=== PATIENT | female | born 1955 | race Caucasian/White ===

== ENCOUNTER 2016-05-30 11:59 | Emergency (ER) | payer BC, OTHER ==
[2016-05-30] MEDS ORDERED: ACETAMINOPHEN TAB 500 MG TAB PO STA (12:44)
--- NOTE | 2016-05-30 12:48 | ED ---
General Adult HPI - General Chief complaint: Weakness Stated complaint: FACIAL NUMBNESS, DIZZINESS Time Seen by Provider: 05/30/16 12:05 Source: patient, RN notes reviewed Mode of arrival: wheelchair Limitations: no limitations - History of Present Illness Initial comments: This is a 60-year-old female who presents to the emergency department complaining of not feeling right over the last 2 days. Patient states she's a little bit lightheaded but not dizzy. Patient states she's feeling hot sometimes but not sweating. Patient states she also feels a little bit jittery. Patient states she went and saw her primary medical care doctor and they told her that she was anxious and gave her some medication for anxiety. Patient denies any congestion patient denies any sore throat patient denies any difficulty breathing or shortness of breath. Patient denies any chest pain or palpitations. Patient denies abdominal pain patient denies nausea vomiting or diarrhea. Patient denies any rashes or lesions. Patient denies any dysuria hematuria urinary frequency. - Related Data Home Medications Medication Instructions Recorded Confirmed Citalopram Hydrobromide [CeleXA] 10 mg PO DAILY@1700 05/30/16 05/30/16 Insulin Glargine,Hum.rec.anlog 33 units SQ DAILY@1700 05/30/16 05/30/16 [Avinash Bourgeois] Lisinopril [Zestril] 20 mg PO QAM 05/30/16 05/30/16 Omeprazole 40 mg PO QAM 05/30/16 05/30/16 amLODIPine [Norvasc] 10 mg PO QAM 05/30/16 05/30/16 Previous Rx's Medication Instructions Recorded Ciprofloxacin HCl [Cipro] 500 mg PO Q12HR #14 tablet 05/30/16 Allergies Allergy/AdvReac Type Severity Reaction Status Date / Time No Known Allergies Allergy Verified 05/30/16 12:33 Review of Systems ROS Statement: Those systems with pertinent positive or pertinent negative responses have been documented in the HPI. ROS Other: All systems not noted in ROS Statement are negative. Past Medical History Past Medical History: Diabetes Mellitus, GERD/Reflux, Hypertension History of Any Multi-Drug Resistant Organisms: None Reported Past Surgical History: Hysterectomy Past Psychological History: No Psychological Hx Reported Smoking Status: Never smoker Past Alcohol Use History: None Reported Past Drug Use History: None Reported General Exam - General Exam Comments Initial Comments: GENERAL: Patient is well-developed and well-nourished. Patient is nontoxic and well- hydrated and is in mild distress. ENT: Neck is soft and supple. No significant lymphadenopathy is noted. Oropharynx is clear. Moist mucous membranes. Neck has full range of motion without eliciting any pain. EYES: The sclera were anicteric and conjunctiva were pink and moist. Extraocular movements were intact and pupils were equal round and reactive to light. Eyelids were unremarkable. PULMONARY: Unlabored respirations. Good breath sounds bilaterally. No audible rales rhonchi or wheezing was noted. CARDIOVASCULAR: There is a regular rate and rhythm without any murmurs gallops or rubs. ABDOMEN: Soft and nontender with normal bowel sounds. No palpable organomegaly was noted. There is no palpable pulsatile mass. SKIN: Skin is clear with no lesions or rashes and otherwise unremarkable. NEUROLOGIC: Patient is alert and oriented x3. Cranial nerves II through XII are grossly intact. Motor and sensory are also intact. Normal speech, volume and content. Symmetrical smile. MUSCULOSKELETAL: Normal extremities with adequate strength and full range of motion. LYMPHATICS: No significant lymphadenopathy is noted PSYCHIATRIC: Normal psychiatric evaluation. Limitations: no limitations Course Vital Signs 05/30/16 05/30/16 05/30/16 12:01 12:42 13:43 Temperature 97.2 F L 99.7 F H 98.1 F Pulse Rate 85 70 Respiratory 16 18 Rate Blood Pressure 142/67 129/75 O2 Sat by Pulse 98 98 Oximetry Medical Decision Making - Medical Decision Making EKG shows normal sinus rhythm at 81 bpm NH interval is 164 QRS is 80 QT interval 42 QTC is 466 per patient's EKG shows no ST segment elevation or depression or T wave abnormalities are noted. Patient appeared to have a urinary tract infections I gave the patient antibiotics and sent the patient home on antibiotics. - Lab Data Result diagrams: 05/30/16 12:28 05/30/16 12:28 Lab Results 05/30/16 05/30/16 05/30/16 Range/Units 12:28 12:28 12:28 WBC 9.2 (3.8-10.6) k/uL RBC 4.82 (3.80-5.40) m/uL Hgb 14.6 (11.4-16.0) gm/dL Hct 42.6 (34.0-46.0) % MCV 88.5 (80.0-100.0) fL MCH 30.3 (25.0-35.0) pg MCHC 34.3 (31.0-37.0) g/dL RDW 12.7 (11.5-15.5) % Plt Count 293 (150-450) k/uL Neutrophils % 76 % Lymphocytes % 19 % Monocytes % 4 % Eosinophils % 0 % Basophils % 0 % Neutrophils # 7.0 (1.3-7.7) k/uL Lymphocytes # 1.7 (1.0-4.8) k/uL Monocytes # 0.4 (0-1.0) k/uL Eosinophils # 0.0 (0-0.7) k/uL Basophils # 0.0 (0-0.2) k/uL Sodium 141 (137-145) mmol/L Potassium 4.3 (3.5-5.1) mmol/L Chloride 106 (98-107) mmol/L Carbon Dioxide 22 (22-30) mmol/L Anion Gap 13 mmol/L BUN 18 H (7-17) mg/dL Creatinine 0.85 (0.52-1.04) mg/dL Est GFR (MDRD) Af Amer >60 (>60 ml/min/1.73 sqM) Est GFR (MDRD) Non-Af >60 (>60 ml/min/1.73 sqM) Glucose 159 H (74-99) mg/dL Calcium 9.9 (8.4-10.2) mg/dL Total Bilirubin 0.7 (0.2-1.3) mg/dL AST 24 (14-36) U/L ALT 31 (9-52) U/L Alkaline Phosphatase 77 (38-126) U/L Total Protein 7.9 (6.3-8.2) g/dL Albumin 4.2 (3.5-5.0) g/dL TSH 0.837 (0.465-4.680) mIU/L Free T4 1.30 (0.78-2.19) ng/dL Urine Color Urine Appearance (Clear) Urine pH (5.0-8.0) Ur Specific [place] (1.001-1.035) Urine Protein (Negative) Urine Glucose (UA) (Negative) Urine Ketones (Negative) Urine Blood (Negative) Urine Nitrate (Negative) Urine Bilirubin (Negative) Urine Urobilinogen (<2.0) mg/dL Ur Leukocyte Esterase (Negative) Urine RBC (0-5) /hpf Urine WBC (0-5) /hpf Ur Squamous Epith Cells (0-4) /hpf Urine Bacteria (None) /hpf Hyaline Casts (0-2) /lpf Urine Mucus (None) /hpf 05/30/16 Range/Units 13:14 WBC (3.8-10.6) k/uL RBC (3.80-5.40) m/uL Hgb (11.4-16.0) gm/dL Hct (34.0-46.0) % MCV (80.0-100.0) fL MCH (25.0-35.0) pg MCHC (31.0-37.0) g/dL RDW (11.5-15.5) % Plt Count (150-450) k/uL Neutrophils % % Lymphocytes % % Monocytes % % Eosinophils % % Basophils % % Neutrophils # (1.3-7.7) k/uL Lymphocytes # (1.0-4.8) k/uL Monocytes # (0-1.0) k/uL Eosinophils # (0-0.7) k/uL Basophils # (0-0.2) k/uL Sodium (137-145) mmol/L Potassium (3.5-5.1) mmol/L Chloride (98-107) mmol/L Carbon Dioxide (22-30) mmol/L Anion Gap mmol/L BUN (7-17) mg/dL Creatinine (0.52-1.04) mg/dL Est GFR (MDRD) Af Amer (>60 ml/min/1.73 sqM) Est GFR (MDRD) Non-Af (>60 ml/min/1.73 sqM) Glucose (74-99) mg/dL Calcium (8.4-10.2) mg/dL Total Bilirubin (0.2-1.3) mg/dL AST (14-36) U/L ALT (9-52) U/L Alkaline Phosphatase (38-126) U/L Total Protein (6.3-8.2) g/dL Albumin (3.5-5.0) g/dL TSH (0.465-4.680) mIU/L Free T4 (0.78-2.19) ng/dL Urine Color Yellow Urine Appearance Clear (Clear) Urine pH 5.5 (5.0-8.0) Ur Specific [place] 1.017 (1.001-1.035) Urine Protein Negative (Negative) Urine Glucose (UA) Negative (Negative) Urine Ketones 1+ H (Negative) Urine Blood Negative (Negative) Urine Nitrate Negative (Negative) Urine Bilirubin Negative (Negative) Urine Urobilinogen <2.0 (<2.0) mg/dL Ur Leukocyte Esterase Small H (Negative) Urine RBC 2 (0-5) /hpf Urine WBC 26 H (0-5) /hpf Ur Squamous Epith Cells 1 (0-4) /hpf Urine Bacteria Many H (None) /hpf Hyaline Casts 2 (0-2) /lpf Urine Mucus Rare H (None) /hpf Disposition Clinical Impression: Urinary tract infection Disposition: HOME SELF-CARE Condition: Good Instructions: Urinary Tract Infection in Women (ED) Prescriptions: Ciprofloxacin HCl [Cipro] 500 mg PO Q12HR #14 tablet Referrals: Russ Hancock MD [Primary Care Provider] - 1-2 days Time of Disposition: 14:57
[2016-05-30 12:59] LABS: Basophils % (A) 0 %; CH 31.7; Eosinophils % (A) 0 %; HCT 42.6 % (34.0-46.0); HDW 2.73; HGB 14.6 gm/dL (11.4-16.0); Luc # (Auto) 0.06; Luc % (Auto) 1; Lymphocytes # (A) 1.7 k/uL (1.0-4.8); Lymphocytes % (A) 19 %; MCH 30.3 pg (25.0-35.0); MCHC 34.3 g/dL (31.0-37.0); MCV 88.5 fL (80.0-100.0); Mean Platelet Volume 7.6; Monocytes # (A) 0.4 k/uL (0-1.0); Monocytes % (A) 4 %; Neutrophils % (A) 76 %; RBC 4.82 m/uL (3.80-5.40); RDW 12.7 % (11.5-15.5); WBC 9.2 k/uL (3.8-10.6); WBC (Perox) 9.26
[2016-05-30 13:10] LABS: ALT 31 U/L (9-52); AST 24 U/L (14-36); Alkaline Phosphatase 77 U/L (38-126); Anion Gap 13 mmol/L; Blood Urea Nitrogen 18 mg/dL (7-17); Calcium 9.9 mg/dL (8.4-10.2); Carbon Dioxide 22 mmol/L (22-30); Chloride 106 mmol/L (98-107); Glucose 159 mg/dL (74-99); Non-African American GFR(MDRD) >60 (>60 ml/min/1.73 sqM); Potassium 4.3 mmol/L (3.5-5.1); Sodium 141 mmol/L (137-145); Total Bilirubin 0.7 mg/dL (0.2-1.3); Total Protein 7.9 g/dL (6.3-8.2)
--- NOTE | 2016-05-30 13:13 | XR ---
EXAMINATION TYPE: XR chest 2V DATE OF EXAM: 05/30/2016 1:08 PM HISTORY: Shortness of breath. COMPARISON: None. TECHNIQUE: Single view of the chest is submitted. FINDINGS: Demonstrated are scattered senescent parenchymal change. There is no evidence for focal infiltrate. The heart is stable. Hilar and mediastinal structures are within normal limits. Degenerative changes are seen of the dorsal spine. IMPRESSION: 1. Chronic changes without evidence for acute pulmonary disease.
[2016-05-30 13:27] LABS: Appearance,Urine Clear (Clear); Bacteria,Urine Many /hpf; Bilirubin,Urine Negative (Negative); Glucose,Urine (UA) Negative (Negative); Ketones,Urine 1+ (Negative); Leukocyte Esterase,Urine Small (Negative); Mucus,Urine Rare /hpf; Nitrite,Urine Negative (Negative); PH, Urine 5.5 (5.0-8.0); Particle Count 3081; Protein,Urine Negative (Negative); RBC,Urine 2 /hpf (0-5); Specific Gravity,Urine 1.017 (1.001-1.035); Squamous Epithelial Cell,Urine 1 /hpf (0-4); UA Billing (MACRO vs. MICRO) MICRO; Urobilinogen,Urine <2.0 mg/dL (<2.0); WBC,Urine 26 /hpf (0-5)
[2016-05-30 13:53] VITALS: RESP 18
[2016-05-30 15:10] VITALS: BP 112/64; PULSE 63; TEMP 98
== END 2016-05-30 15:09 | disposition home or self-care (01) ==
LOC: EC 11:59
DX: N39.0 Urinary tract infection, site not specified (principal); I10 Essential (primary) hypertension; E11.9 Type 2 diabetes mellitus without complications; K21.9 Gastro-esophageal reflux disease without esophagitis; F41.9 Anxiety disorder, unspecified; Z79.4 Long term (current) use of insulin; Z79.899 Other long term (current) drug therapy
CPT/HCPCS: 36415; 93005; 84439; 80053; 84443; 85025; 81001; 71020; 99285; 96365; J0696

== ENCOUNTER → 2016-06-11 | Outpatient (CLI) | payer OTHER ==
[2016-06-11 09:38] LABS: Cholesterol 198 mg/dL (<200); HDL Cholesterol 41 mg/dL (40-60); Triglycerides 204 mg/dL (<150)
== END | disposition home or self-care (01) ==
LOC: LABWHC1 08:36
PROVIDERS: ATTEND Internal Medicine Interventional Cardiology
DX: E78.2 Mixed hyperlipidemia (principal)
CPT/HCPCS: 36415; 80061

== ENCOUNTER → 2016-10-01 | Outpatient (CLI) | payer OTHER ==
[2016-10-01 09:22] LABS: ALT 39 U/L (9-52); AST 30 U/L (14-36); Cholesterol 139 mg/dL (<200); HDL Cholesterol 39 mg/dL (40-60); Triglycerides 139 mg/dL (<150)
== END | disposition home or self-care (01) ==
LOC: LABWHC1 08:42
PROVIDERS: ATTEND Internal Medicine Interventional Cardiology
DX: E78.2 Mixed hyperlipidemia (principal)
CPT/HCPCS: 36415; 80061; 84450; 84460

== ENCOUNTER 2017-02-04 11:09 | Inpatient (IN) | payer OTHER ==
[2017-02-04] MEDS ORDERED: MECLIZINE 25 MG TAB PO STA (11:36)
[2017-02-04] MEDS ORDERED: ASPIRIN 81 MG PO STA (11:36)
[2017-02-04] MEDS ORDERED: NITROGLYCERIN OINT 1 INCH/GM PACKET TOPICAL STA (11:36)
[2017-02-04] MEDS ORDERED: DIAZEPAM 5 MG/ML 2 ML SYRINGE IVP STA (11:36)
[2017-02-04] MEDS ORDERED: SODIUM CHLORIDE 0.9% 500 ML IV STA (11:36)
--- NOTE | 2017-02-04 11:42 | ED ---
General Adult HPI - General Chief complaint: Dizziness Stated complaint: heart palps Time Seen by Provider: 02/04/17 11:20 Source: patient, RN notes reviewed Mode of arrival: wheelchair Limitations: no limitations - History of Present Illness Initial comments: This is a 61-year-old female with past medical history significant for diabetes hypertension high cholesterol. Patient states she was getting her hair colored today when all of a sudden she became very sweaty and then became lightheaded but did not feel as though she was going to pass out. Patient stated she then started having some minimal chest heaviness. Patient states there was no radiation of the pain. Patient denies any nausea. Patient states she still feels dizzy especially when she moves her head. Patient states the discomfort remains in her chest but is very minimal. Patient denies any abdominal pain. Patient denies any nausea vomiting diarrhea. Patient denies any recent fever chills or cough. Patient denies any recent trauma. Patient states she is a very mild headache there is no numbness or weakness. - Related Data Home Medications Medication Instructions Recorded Confirmed Insulin Glargine,Hum.rec.anlog 17 units SQ DAILY@1700 05/30/16 02/04/17 [Toujeo Solostar] Lisinopril [Zestril] 20 mg PO QAM 05/30/16 02/04/17 amLODIPine [Norvasc] 10 mg PO QAM 05/30/16 02/04/17 Omeprazole 20 mg PO DAILY 02/04/17 02/04/17 metFORMIN HCL [Glucophage] 850 mg PO BID@0800,1600 02/04/17 02/04/17 Allergies Allergy/AdvReac Type Severity Reaction Status Date / Time No Known Allergies Allergy Verified 02/04/17 11:46 Review of Systems ROS Statement: Those systems with pertinent positive or pertinent negative responses have been documented in the HPI. ROS Other: All systems not noted in ROS Statement are negative. Past Medical History Past Medical History: Diabetes Mellitus, GERD/Reflux, Hypertension History of Any Multi-Drug Resistant Organisms: None Reported Past Surgical History: Hysterectomy Additional Past Surgical History / Comment(s): bunionectomy Past Psychological History: No Psychological Hx Reported Smoking Status: Never smoker Past Alcohol Use History: None Reported Past Drug Use History: None Reported General Exam - General Exam Comments Initial Comments: GENERAL: Patient is well-developed and well-nourished. Patient is nontoxic and well- hydrated and is in mild distress. ENT: Neck is soft and supple. No significant lymphadenopathy is noted. Oropharynx is clear. Moist mucous membranes. Neck has full range of motion without eliciting any pain. EYES: The sclera were anicteric and conjunctiva were pink and moist. Extraocular movements were intact and pupils were equal round and reactive to light. Eyelids were unremarkable. PULMONARY: Unlabored respirations. Good breath sounds bilaterally. No audible rales rhonchi or wheezing was noted. CARDIOVASCULAR: There is a regular rate and rhythm without any murmurs gallops or rubs. ABDOMEN: Soft and nontender with normal bowel sounds. No palpable organomegaly was noted. There is no palpable pulsatile mass. SKIN: Skin is clear with no lesions or rashes and otherwise unremarkable. NEUROLOGIC: Patient is alert and oriented x3. Cranial nerves II through XII are grossly intact. Motor and sensory are also intact. Normal speech, volume and content. Symmetrical smile. Cerebellar testing. Nose was normal bilaterally MUSCULOSKELETAL: Normal extremities with adequate strength and full range of motion. No lower extremity swelling or edema. No calf tenderness. LYMPHATICS: No significant lymphadenopathy is noted PSYCHIATRIC: Normal psychiatric evaluation. Normal interpersonal interactions appears functionally intact in deals appropriately with others. No signs of depression. No signs of anxiety. Limitations: no limitations Course Vital Signs 02/04/17 02/04/17 02/04/17 11:19 12:03 13:39 Pulse Rate 108 H 99 65 Respiratory 20 19 18 Rate Blood Pressure 159/77 130/64 128/64 O2 Sat by Pulse 98 96 98 Oximetry Medical Decision Making - Medical Decision Making EKG shows normal sinus rhythm at 96 bpm WV interval 152 QRS is 70 QT interval 356 QTC is 449. Patient's EKG is compared to an old EKG there are no acute changes noted however leads V2 and V3 may be switched. CT of the brain shows no acute abnormality. Patient's chest x-ray shows no acute abnormality. Patient received Antivert while in the hospital but she remains somewhat dizzy. Patient states she still has some slight discomfort in the chest. Patient is hypomagnesemic so I will be giving her some magnesium. I spoke with Dr. Hancock I admitted the patient to Dr. Hancock I consult to cardiology. - Lab Data Result diagrams: 02/04/17 11:57 02/04/17 11:57 Lab Results 02/04/17 02/04/17 02/04/17 Range/Units 11:57 11:57 11:57 WBC 9.1 (3.8-10.6) k/uL RBC 4.29 (3.80-5.40) m/uL Hgb 13.8 (11.4-16.0) gm/dL Hct 40.4 (34.0-46.0) % MCV 94.3 (80.0-100.0) fL MCH 32.1 (25.0-35.0) pg MCHC 34.0 (31.0-37.0) g/dL RDW 13.4 (11.5-15.5) % Plt Count 322 (150-450) k/uL Neutrophils % 71 % Lymphocytes % 22 % Monocytes % 5 % Eosinophils % 2 % Basophils % 0 % Neutrophils # 6.4 (1.3-7.7) k/uL Lymphocytes # 2.0 (1.0-4.8) k/uL Monocytes # 0.4 (0-1.0) k/uL Eosinophils # 0.1 (0-0.7) k/uL Basophils # 0.0 (0-0.2) k/uL PT (9.0-12.0) sec INR (<1.2) APTT (22.0-30.0) sec Sodium 139 (137-145) mmol/L Potassium 4.7 (3.5-5.1) mmol/L Chloride 106 (98-107) mmol/L Carbon Dioxide 20 L (22-30) mmol/L Anion Gap 13 mmol/L BUN 16 (7-17) mg/dL Creatinine 0.89 (0.52-1.04) mg/dL Est GFR (MDRD) Af Amer >60 (>60 ml/min/1.73 sqM) Est GFR (MDRD) Non-Af >60 (>60 ml/min/1.73 sqM) Glucose 147 H (74-99) mg/dL Calcium 9.7 (8.4-10.2) mg/dL Magnesium 1.2 L (1.6-2.3) mg/dL Total Bilirubin 0.5 (0.2-1.3) mg/dL AST 23 (14-36) U/L ALT 28 (9-52) U/L Alkaline Phosphatase 65 (38-126) U/L Total Creatine Kinase 150 H (30-135) U/L CK-MB (CK-2) 0.9 (0.0-2.4) ng/mL CK-MB (CK-2) Rel Index 0.6 Troponin I <0.012 (0.000-0.034) ng/mL Total Protein 7.2 (6.3-8.2) g/dL Albumin 4.0 (3.5-5.0) g/dL 02/04/17 Range/Units 11:57 WBC (3.8-10.6) k/uL RBC (3.80-5.40) m/uL Hgb (11.4-16.0) gm/dL Hct (34.0-46.0) % MCV (80.0-100.0) fL MCH (25.0-35.0) pg MCHC (31.0-37.0) g/dL RDW (11.5-15.5) % Plt Count (150-450) k/uL Neutrophils % % Lymphocytes % % Monocytes % % Eosinophils % % Basophils % % Neutrophils # (1.3-7.7) k/uL Lymphocytes # (1.0-4.8) k/uL Monocytes # (0-1.0) k/uL Eosinophils # (0-0.7) k/uL Basophils # (0-0.2) k/uL PT 10.7 (9.0-12.0) sec INR 1.1 (<1.2) APTT 21.9 L (22.0-30.0) sec Sodium (137-145) mmol/L Potassium (3.5-5.1) mmol/L Chloride (98-107) mmol/L Carbon Dioxide (22-30) mmol/L Anion Gap mmol/L BUN (7-17) mg/dL Creatinine (0.52-1.04) mg/dL Est GFR (MDRD) Af Amer (>60 ml/min/1.73 sqM) Est GFR (MDRD) Non-Af (>60 ml/min/1.73 sqM) Glucose (74-99) mg/dL Calcium (8.4-10.2) mg/dL Magnesium (1.6-2.3) mg/dL Total Bilirubin (0.2-1.3) mg/dL AST (14-36) U/L ALT (9-52) U/L Alkaline Phosphatase (38-126) U/L Total Creatine Kinase (30-135) U/L CK-MB (CK-2) (0.0-2.4) ng/mL CK-MB (CK-2) Rel Index Troponin I (0.000-0.034) ng/mL Total Protein (6.3-8.2) g/dL Albumin (3.5-5.0) g/dL Critical Care Time Critical Care Time: Yes Total Critical Care Time: 35 Disposition Clinical Impression: Unstable angina, Hypomagnesemia, Vertigo Disposition: ADMITTED IP TO THIS HOSP Referrals: Russ Hancock MD [Primary Care Provider] - 1-2 days Time of Disposition: 13:51
[2017-02-04 12:12] LABS: Basophils % (A) 0 %; CHCM 35.2; Eosinophils # (A) 0.1 k/uL (0-0.7); Eosinophils % (A) 2 %; HCT 40.4 % (34.0-46.0); HDW 2.79; HGB 13.8 gm/dL (11.4-16.0); Luc # (Auto) 0.07; Luc % (Auto) 1; Lymphocytes % (A) 22 %; MCH 32.1 pg (25.0-35.0); MCV 94.3 fL (80.0-100.0); Mean Platelet Volume 7.6; Monocytes # (A) 0.4 k/uL (0-1.0); Monocytes % (A) 5 %; Neutrophils # (A) 6.4 k/uL (1.3-7.7); Neutrophils % (A) 71 %; RBC 4.29 m/uL (3.80-5.40); RDW 13.4 % (11.5-15.5); WBC 9.1 k/uL (3.8-10.6); WBC (Perox) 8.58
[2017-02-04 12:19] LABS: ALT 28 U/L (9-52); AST 23 U/L (14-36); Alkaline Phosphatase 65 U/L (38-126); Anion Gap 13 mmol/L; Blood Urea Nitrogen 16 mg/dL (7-17); Calcium 9.7 mg/dL (8.4-10.2); Carbon Dioxide 20 mmol/L (22-30); Chloride 106 mmol/L (98-107); Glucose 147 mg/dL (74-99); Magnesium 1.2 mg/dL (1.6-2.3); Non-African American GFR(MDRD) >60 (>60 ml/min/1.73 sqM); Potassium 4.7 mmol/L (3.5-5.1); Sodium 139 mmol/L (137-145); Total Bilirubin 0.5 mg/dL (0.2-1.3); Total Protein 7.2 g/dL (6.3-8.2)
[2017-02-04 12:31] LABS: INR 1.1 (<1.2); Prothrombin Time 10.7 sec (9.0-12.0)
[2017-02-04 12:32] LABS: Partial Thromboplastin Time 21.9 sec (22.0-30.0)
[2017-02-04 12:45] LABS: Creatine Kinase 150 U/L (30-135)
[2017-02-04 12:57] LABS: Creatine Kinase MB 0.9 ng/mL (0.0-2.4); Troponin I <0.012 ng/mL (0.000-0.034)
--- NOTE | 2017-02-04 13:13 | CT ---
EXAMINATION TYPE: CT brain wo con DATE OF EXAM: 02/04/2017 COMPARISON: NONE HISTORY: dizziness CT DLP: 1227 mGycm. Automated Exposure Control for Dose Reduction was Utilized. TECHNIQUE: CT scan of the head is performed without contrast. FINDINGS: There is no acute intracranial hemorrhage, mass effect, or midline shift identified. The ventricles and sulci are within normal limits in size for the patient's age. No suspicious extra-ax ial fluid collection is seen. The globes are intact and the visualized sinuses are clear. IMPRESSION: No acute intracranial hemorrhage, mass effect, or midline shift is seen. No acute intrac ranial process.
--- NOTE | 2017-02-04 13:15 | XR ---
EXAMINATION TYPE: XR chest 2V DATE OF EXAM: 02/04/2017 COMPARISON: 05/30/16 HISTORY: Shortness of breath TECHNIQUE: Frontal and lateral views of the chest are obtained. FINDINGS: Scattered senescent parenchymal changes noted. Hyperinflation compatible with COPD. No evidence for infiltrate. No evidence for atelectasis. Heart size is stable. Mediastinal structures are stable and grossly unremarkable. No evidence for hilar prominence. Degenerative changes dorsal spine. IMPRESSION: 1. No evidence for acute pulmonary disease.
[2017-02-04] MEDS ORDERED: NITROGLYCERIN SL TABS 0.4 MG TAB SUBLINGUAL PRN (13:51)
[2017-02-04] MEDS ORDERED: HEPARIN SODIUM,PORCINE 5,000 UNIT/ML 1 ML VIAL IV ONE (13:55)
[2017-02-04] MEDS ORDERED: HEPARIN SODIUM,PORCINE/D5W PMX 25,000 UNIT in DEXTROSE/WATER 1 500ML.BAG IV SCH (14:00)
[2017-02-04 15:38] LABS: Glucose,Whole Blood 112 mg/dL (75-99)
[2017-02-04] MEDS: NITROGLYCERIN OINT 1 INCH/GM PACKET TOPICAL SCH (16:20)
[2017-02-04] MEDS: MAGNESIUM SULFATE-D5W PMX 1 GM in DEXTROSE/WATER 1 100ML.BAG IVPB SCH ×2 (16:39→17:06)
[2017-02-04 16:55] LABS: Glucose,Whole Blood 128 mg/dL (75-99)
[2017-02-04 18:38] LABS: Creatine Kinase 113 U/L (30-135)
[2017-02-04 18:53] LABS: Creatine Kinase MB 0.8 ng/mL (0.0-2.4); Troponin I <0.012 ng/mL (0.000-0.034)
[2017-02-04 20:18] LABS: Glucose,Whole Blood 209 mg/dL (75-99)
[2017-02-04] MEDS ORDERED: ACETAMINOPHEN TAB 325 MG TAB PO PRN (21:15)
[2017-02-04] MEDS ORDERED: INSULIN GLARGINE 100 UNIT/ML 10 ML VIAL SQ SCH (21:45)
[2017-02-04] MEDS: amLODIPine 10 MG TAB PO SCH (22:02)
[2017-02-04 22:59] LABS: Hemoglobin A1C 6.4 % (4.2-6.1)
[2017-02-05 00:48] LABS: Creatine Kinase 99 U/L (30-135)
[2017-02-05 01:01] LABS: Creatine Kinase MB 0.8 ng/mL (0.0-2.4); Troponin I <0.012 ng/mL (0.000-0.034)
[2017-02-05 04:56] LABS: Magnesium 1.7 mg/dL (1.6-2.3)
[2017-02-05 05:26] LABS: Glucose,Whole Blood 89 mg/dL (75-99)
[2017-02-05] MEDS: NITROGLYCERIN OINT 1 INCH/GM PACKET TOPICAL SCH ×3 (05:56→11:26)
[2017-02-05] MEDS ORDERED: PANTOPRAZOLE 40 MG TABLET PO SCH (07:30)
--- NOTE | 2017-02-05 08:47 | P.HPIM ---
History of Present Illness H&P Date: 02/05/17 Chief Complaint: Chest heaviness This is a 61-year-old white female with known history of diabetes, which is been fairly well controlled and history of reflux esophagitis he states significant chest heaviness when she was getting her hair styled yesterday. This is unusual for her to feel any of this type of discomfort. There is questionable mild nausea but no diaphoresis stated. Given her age and her overall comorbidities, she is essentially admitted for rule out myocardial infarction. She is a nonsmoker. She states significant stress because of her parents, being elderly, are somewhat debilitated. No previous anginal symptoms. He states previous stress testing recently within the last year or 2 which was normal. Review of Systems Constitutional: Denies chills, Denies fever Eyes: denies blurred vision, denies pain Cardiovascular: Reports chest pain, Reports dyspnea on exertion Respiratory: Denies cough Genitourinary: Denies dysuria, Denies hematuria Past Medical History Past Medical History: Diabetes Mellitus, GERD/Reflux, Hyperlipidemia, Hypertension History of Any Multi-Drug Resistant Organisms: None Reported Past Surgical History: Hysterectomy Additional Past Surgical History / Comment(s): bunionectomy, lower dental implants Past Anesthesia/Blood Transfusion Reactions: No Reported Reaction Additional Past Anesthesia/Blood Transfusion Reaction / Comment(s): clausterphobia Smoking Status: Never smoker - Past Family History Mother Family Medical History: Diabetes Mellitus Father Additional Family Medical History / Comment(s): pacemaker, heart valve replacement Medications and Allergies Home Medications Medication Instructions Recorded Confirmed Type Insulin Glargine,Hum.rec.anlog 17 units SQ DAILY@1700 05/30/16 02/04/17 History [Avinash Bourgeois] Lisinopril [Zestril] 20 mg PO QAM 05/30/16 02/04/17 History amLODIPine [Norvasc] 10 mg PO QAM 05/30/16 02/04/17 History Omeprazole 20 mg PO DAILY 02/04/17 02/04/17 History metFORMIN HCL [Glucophage] 850 mg PO BID@0800,1600 02/04/17 02/04/17 History Allergies Allergy/AdvReac Type Severity Reaction Status Date / Time No Known Allergies Allergy Verified 02/04/17 11:46 Physical Exam Vitals: Vital Signs Temp Pulse Pulse Resp BP BP BP 02/05/17 04:00 96.9 F L 67 16 02/05/17 00:00 97.3 F L 88 16 02/04/17 20:00 97.5 F L 105 H 15 125/68 123/73 02/04/17 16:00 97.5 F L 87 16 02/04/17 14:21 98.2 F 75 18 126/74 02/04/17 13:39 65 18 128/64 02/04/17 12:03 99 19 130/64 02/04/17 11:19 108 H 20 159/77 BP BP Pulse Ox 02/05/17 04:00 109/56 95 02/05/17 00:00 131/63 96 02/04/17 20:00 115/56 115/56 93 L 02/04/17 16:00 128/76 95 02/04/17 14:21 97 02/04/17 13:39 98 02/04/17 12:03 96 02/04/17 11:19 98 Intake and Output 02/04/17 02/05/17 02/05/17 22:59 06:59 14:59 Intake Total 123.728 Output Total 225 Balance 123.728 -225 Intake: Intake, IV Titration 123.728 Amount Heparin Sodium,Porcine/ 123.728 D5w Pmx 25,000 unit In Dextrose/Water 1 500ml. bag @ 9.76 UNITS/KG/HR 20 .01 mls/hr IV .Q24H ARABELLA Rx#:[id number] Output: Urine 225 Other: # Voids 1 1 Weight 104.5 kg - Constitutional General appearance: obese - EENT Eyes: EOMI - Neck Neck: no lymphadenopathy - Respiratory Respiratory: bilateral: CTA - Cardiovascular Rhythm: regular Heart sounds: normal: S1, S2 - Gastrointestinal General gastrointestinal: soft, no tenderness - Integumentary Integumentary: no cellulitis - Neurologic Neurologic: CNII-XII intact, focal deficits Results CBC & Chem 7: 02/04/17 11:57 02/04/17 11:57 Labs: Abnormal Lab Results - Last 24 Hours (Table) 02/04/17 02/04/17 02/04/17 Range/Units 11:57 11:57 11:57 APTT 21.9 L (22.0-30.0) sec Carbon Dioxide 20 L (22-30) mmol/L Glucose 147 H (74-99) mg/dL POC Glucose (mg/dL) (75-99) mg/dL Hemoglobin A1c (4.2-6.1) % Magnesium 1.2 L (1.6-2.3) mg/dL Total Creatine Kinase 150 H (30-135) U/L HDL Cholesterol (40-60) mg/dL 02/04/17 02/04/17 02/04/17 Range/Units 11:57 15:11 16:52 APTT (22.0-30.0) sec Carbon Dioxide (22-30) mmol/L Glucose (74-99) mg/dL POC Glucose (mg/dL) 112 H 128 H (75-99) mg/dL Hemoglobin A1c 6.4 H (4.2-6.1) % Magnesium (1.6-2.3) mg/dL Total Creatine Kinase (30-135) U/L HDL Cholesterol (40-60) mg/dL 02/04/17 02/04/17 02/05/17 Range/Units 20:16 20:24 03:59 APTT 37.5 H (22.0-30.0) sec Carbon Dioxide (22-30) mmol/L Glucose (74-99) mg/dL POC Glucose (mg/dL) 209 H (75-99) mg/dL Hemoglobin A1c (4.2-6.1) % Magnesium (1.6-2.3) mg/dL Total Creatine Kinase (30-135) U/L HDL Cholesterol 37 L (40-60) mg/dL 02/05/17 Range/Units 03:59 APTT 51.1 H (22.0-30.0) sec Carbon Dioxide (22-30) mmol/L Glucose (74-99) mg/dL POC Glucose (mg/dL) (75-99) mg/dL Hemoglobin A1c (4.2-6.1) % Magnesium (1.6-2.3) mg/dL Total Creatine Kinase (30-135) U/L HDL Cholesterol (40-60) mg/dL Assessment and Plan (1) Diabetes Status: Acute (2) Hypomagnesemia Status: Acute (3) Unstable angina Status: Acute (4) Vertigo Status: Acute Plan: Rule out myocardial infraction. Reconcile home medications. Place on insulin sliding scale. Question need for more aggressive cardiac testing today. Cardiology is not consulted. Question need for cardiac cath given her symptomatology and comorbidities. Otherwise, she is a full code. Time with Patient: Greater than 30
[2017-02-05 08:55] VITALS: TEMP 96.7
[2017-02-05] MEDS ORDERED: ASPIRIN 325 MG TAB PO SCH (09:00)
[2017-02-05] MEDS ORDERED: LISINOPRIL 20 MG TAB PO SCH (09:00)
--- NOTE | 2017-02-05 09:23 | P.CRDCN ---
History of Present Illness Consult date: 02/05/17 Requesting physician: Russ Hancock Consult reason: chest pain Chief complaint: Chest pain History of present illness: This is a pleasant 61-year-old female who is recently retired from [employer], she has a history of diabetes, hypertension, hyperlipidemia, GERD, family history of premature coronary artery disease, she follows with Dr. Wilkerson in the office. 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 Patient states that her symptoms had resolved upon arrival to the emergency room. According to the patient, she did have to deal with some stressful family issues prior to going to get her hair done this morning. EKG on presentation here shows a normal sinus rhythm with nonspecific ST-T wave changes. Repeat EKG this morning shows normal sinus rhythm with nonspecific ST-T wave changes. CAT scan of the brain did not reveal any acute findings. Chest x-ray no evidence of acute pulmonary disease. CBC normal, hemoglobin 13.8, platelet count 322. Potassium 4.7, BUN 16, creatinine 0.8. mag level on admission 1.2, 1.7 this morning. Troponins 3 have been negative. Cholesterol 106, LDL 46, HDL 37, triglycerides 117. Patient was recently started on Lipitor in the office by Dr. Wilkerson. She also had a stress test performed in June of this year which was reported in the office to have a fixed apical defect. Blood pressure 133/70, heart rate in the 90s, respirations 16. 95% on room air. At the time of my examination this morning she is currently chest pain-free, no diaphoresis or shortness of breath. Past Medical History Past Medical History: Diabetes Mellitus, GERD/Reflux, Hyperlipidemia, Hypertension History of Any Multi-Drug Resistant Organisms: None Reported Past Surgical History: Hysterectomy Additional Past Surgical History / Comment(s): bunionectomy, lower dental implants Past Anesthesia/Blood Transfusion Reactions: No Reported Reaction Additional Past Anesthesia/Blood Transfusion Reaction / Comment(s): clausterphobia Smoking Status: Never smoker - Past Family History Mother Family Medical History: Diabetes Mellitus Father Additional Family Medical History / Comment(s): pacemaker, heart valve replacement Medications and Allergies Home Medications Medication Instructions Recorded Confirmed Type Insulin Glargine,Hum.rec.anlog 17 units SQ DAILY@1700 05/30/16 02/04/17 History [[place]ostar] Lisinopril [Zestril] 20 mg PO QAM 05/30/16 02/04/17 History amLODIPine [Norvasc] 10 mg PO QAM 05/30/16 02/04/17 History Omeprazole 20 mg PO DAILY 02/04/17 02/04/17 History metFORMIN HCL [Glucophage] 850 mg PO BID@0800,1600 02/04/17 02/04/17 History Allergies Allergy/AdvReac Type Severity Reaction Status Date / Time No Known Allergies Allergy Verified 02/04/17 11:46 Physical Exam Vitals: Vital Signs Temp Pulse Pulse Resp BP BP BP 02/05/17 08:00 96.7 F L 95 16 02/05/17 04:00 96.9 F L 67 16 02/05/17 00:00 97.3 F L 88 16 02/04/17 20:00 97.5 F L 105 H 15 125/68 123/73 02/04/17 16:00 97.5 F L 87 16 02/04/17 14:21 98.2 F 75 18 126/74 02/04/17 13:39 65 18 128/64 02/04/17 12:03 99 19 130/64 02/04/17 11:19 108 H 20 159/77 BP BP Pulse Ox 02/05/17 08:00 133/70 95 02/05/17 04:00 109/56 95 02/05/17 00:00 131/63 96 02/04/17 20:00 115/56 115/56 93 L 02/04/17 16:00 128/76 95 02/04/17 14:21 97 02/04/17 13:39 98 02/04/17 12:03 96 02/04/17 11:19 98 Intake and Output 02/04/17 02/05/17 02/05/17 22:59 06:59 14:59 Intake Total 123.728 Output Total 225 Balance 123.728 -225 Intake: Intake, IV Titration 123.728 Amount Heparin Sodium,Porcine/ 123.728 D5w Pmx 25,000 unit In Dextrose/Water 1 500ml. bag @ 9.76 UNITS/KG/HR 20 .01 mls/hr IV .Q24H [facility] Rx#:[id number] Output: Urine 225 Other: # Voids 1 1 Weight 104.5 kg PHYSICAL EXAMINATION: HEENT: [Head is atraumatic, normocephalic. Pupils equal, round. Neck is supple. There is no elevated jugular venous pressure.] HEART EXAMINATION: [Heart S1, S2 normal. No murmur or gallop heard.] CHEST EXAMINATION:[ Lungs are clear to auscultation and precussion. No chest wall tenderness is noted on palpation or with deep breathing.] ABDOMEN: [ Soft, nontender. Bowel sounds are heard. No organomegaly noted]. EXTREMITIES:[ 2+ peripheral pulses with no evidence of peripheral edema and no calf tenderness noted]. NEUROLOGIC [patient is awake, alert and oriented -3.] . Results 02/04/17 11:57 02/04/17 11:57 Cardiac Enzymes 02/04/17 02/04/17 02/04/17 Range/Units 11:57 11:57 17:50 AST 23 (14-36) U/L CK-MB (CK-2) 0.9 0.8 (0.0-2.4) ng/mL Troponin I <0.012 <0.012 (0.000-0.034) ng/mL 02/04/17 Range/Units 23:53 AST (14-36) U/L CK-MB (CK-2) 0.8 (0.0-2.4) ng/mL Troponin I <0.012 (0.000-0.034) ng/mL Coagulation 02/04/17 02/04/17 02/05/17 Range/Units 11:57 20:24 03:59 PT 10.7 (9.0-12.0) sec APTT 21.9 L 37.5 H 51.1 H (22.0-30.0) sec Lipids 02/05/17 Range/Units 03:59 Triglycerides 117 (<150) mg/dL Cholesterol 106 (<200) mg/dL HDL Cholesterol 37 L (40-60) mg/dL CBC 02/04/17 Range/Units 11:57 WBC 9.1 (3.8-10.6) k/uL RBC 4.29 (3.80-5.40) m/uL Hgb 13.8 (11.4-16.0) gm/dL Hct 40.4 (34.0-46.0) % Plt Count 322 (150-450) k/uL Comprehensive Metabolic Panel 02/04/17 Range/Units 11:57 Sodium 139 (137-145) mmol/L Potassium 4.7 (3.5-5.1) mmol/L Chloride 106 (98-107) mmol/L Carbon Dioxide 20 L (22-30) mmol/L BUN 16 (7-17) mg/dL Creatinine 0.89 (0.52-1.04) mg/dL Glucose 147 H (74-99) mg/dL Calcium 9.7 (8.4-10.2) mg/dL AST 23 (14-36) U/L ALT 28 (9-52) U/L Alkaline Phosphatase 65 (38-126) U/L Total Protein 7.2 (6.3-8.2) g/dL Albumin 4.0 (3.5-5.0) g/dL Current Medications Generic Name Dose Route Start Last Admin Trade Name Freq PRN Reason Stop Dose Admin Acetaminophen 650 mg 02/04/17 21:15 02/04/17 22:00 Tylenol Tab PO 650 mg Q4HR PRN Administration Fever and/ or Pain Amlodipine Besylate 10 mg 02/04/17 19:00 02/04/17 22:02 Norvasc PO 10 mg QAM [facility] Administration Aspirin 325 mg 02/05/17 09:00 Aspirin PO DAILY [facility] Heparin Sodium/Dextrose 25,000 500 mls @ 20.01 mls/hr 02/04/17 14:00 20:30 unit/ IV Solution IV 12.7 units/kg/hr .Q24H [facility] 26.03 mls/hr Protocol Titration 9.76 UNITS/KG/HR Insulin Glargine 17 unit 02/04/17 21:45 02/04/17 22:30 Lantus SQ 17 unit HS [facility] Administration Insulin Human Lispro 0 unit 02/05/17 07:30 Humalog SQ ACHS [facility] Protocol Lisinopril 20 mg 02/05/17 09:00 Zestril PO QAM [facility] Nitroglycerin 1 inch 02/04/17 18:00 02/05/17 06:40 Nitro-Bid Oint TOPICAL 1 inch Q6HR [facility] Administration Nitroglycerin 0.4 mg 02/04/17 13:51 Nitrostat SUBLINGUAL Q5M PRN Chest Pain Pantoprazole Sodium 40 mg 02/05/17 07:30 02/05/17 06:40 Protonix PO 40 mg AC-BRKFST AR[facility]ELLA Administration Intake and Output 02/04/17 02/05/17 02/05/17 22:59 06:59 14:59 Intake Total 123.728 Output Total 225 Balance 123.728 -225 Intake: Intake, IV Titration 123.728 Amount Heparin Sodium,Porcine/ 123.728 D5w Pmx 25,000 unit In Dextrose/Water 1 500ml. bag @ 9.76 UNITS/KG/HR 20 .01 mls/hr IV .Q24H [facility] Rx#:[id number] Output: Urine 225 Other: # Voids 1 1 Weight 104.5 kg 02/04/17 11:57 02/04/17 11:57 EKG Interpretations (text) EKG shows a normal sinus rhythm with nonspecific ST-T wave changes Assessment and Plan Plan: Assessment and plan #1 symptoms of diaphoresis with associated epigastric discomfort and mild shortness of breath suggestive of possible acute coronary syndrome. Troponins have been negative 3, EKG normal sinus rhythm with nonspecific ST-T wave changes. Stress test performed in June of this year showed a fixed defect of the anterior wall #2 diabetes #3 hypertension #4 hyperlipidemia #5 GERD #6 family history of premature coronary artery disease #7 hypomagnesemia replaced Plan We will request an echocardiogram with Doppler study be performed. Echo which was performed in June of this year revealed a normal ejection fraction with mild TR and mild to moderate MR. Into a new IV heparin, continue aspirin, lisinopril, Nitropaste, we will start the patient on Lipitor. She has been advised that she may need to undergo cardiac catheterization for more definitive diagnosis, the risks and the benefits were explained to the patient in detail and she is willing to proceed. Further recommendations will follow. DNP note has been reviewed, I agree with a documented findings and plan of care. Patient was seen and examined.
[2017-02-05] MEDS ORDERED: ASPIRIN 325 MG TAB PO STA (09:53)
[2017-02-05] MEDS ORDERED: ATORVASTATIN 80 MG TAB PO STA (09:53)
[2017-02-05] MEDS ORDERED: NITROGLYCERIN SL TABS 0.4 MG TAB SUBLINGUAL PRN (09:53)
[2017-02-05] MEDS ORDERED: ALPRAZolam 0.5 MG TAB PO PRN (09:53)
[2017-02-05] MEDS ORDERED: SODIUM CHLORIDE 0.9% 1,000 ML in EMPTY BAG 1 BAG IV ONE (09:53)
[2017-02-05] MEDS ORDERED: ALPRAZolam 0.25 MG TAB PO PRN (09:53)
[2017-02-05] MEDS ORDERED: ATORVASTATIN 40 MG TAB PO SCH (10:00)
[2017-02-05] MEDS ORDERED: LIDOCAINE 2% INJ 20 MG/ML (20 ML MDV) ONE (11:00)
[2017-02-05] MEDS: INSULIN LISPRO (humaLOG) 300 UNIT/3 ML VIAL SQ SCH ×3 (11:15→17:16)
[2017-02-05] MEDS: amLODIPine 10 MG TAB PO SCH (11:15)
[2017-02-05] MEDS ORDERED: MIDAZOLAM 2 MG/2 ML VIAL ONE (11:49)
[2017-02-05] MEDS ORDERED: fentaNYL (PF) 50 MCG/ML 2 ML AMP ONE (11:50)
[2017-02-05] MEDS ORDERED: SODIUM CHLORIDE 0.9% 1,000 ML IV ONE (11:51)
[2017-02-05] MEDS ORDERED: fentaNYL (PF) 50 MCG/ML 2 ML AMP IV ONE (12:06)
[2017-02-05] MEDS ORDERED: MIDAZOLAM 2 MG/2 ML VIAL IV ONE ×2 (12:06→12:10)
[2017-02-05] MEDS ORDERED: LIDOCAINE 2% INJ 20 MG/ML SQ ONE (12:10)
[2017-02-05] MEDS ORDERED: IOHEXOL 350 MG/ML 125ML BOTTLE INJ ONE (12:22)
[2017-02-05] MEDS ORDERED: RX INFO: IV CONTRAST WAS GIVEN 1 EACH MISC MISCELLANE PRN (12:31)
--- NOTE | 2017-02-05 12:56 | CC ---
CARDIAC CATHETERIZATION REPORT Mrs. Tatum is a 61-year-old female who was admitted with a complaint of heaviness in the chest, heart racing and the diaphoresis suggestive of unstable angina syndrome. EKG showed minimal ST changes. The cardiac enzymes were normal. In view of the patient's multiple risk factors, patient was advised cardiac catheterization for definitive diagnosis. PROCEDURE: The right groin was prepped and draped in the usual manner and the skin was infiltrated with 2% xylocaine. The right femoral artery was entered using Seldinger technique. A #6-Romanian sheath was placed in. Selective coronary angiography was then performed in multiple projections and the left ventricular pressures were obtained. Patient tolerated the procedure well. Sheath was removed and good hemostasis was achieved with the use of Angio-Seal. HEMODYNAMICS: The left ventricular end-diastolic pressure is 8 to 10 mmHg prior to angiography and no gradient is noted across the aortic valve. SELECTIVE CORONARY ANGIOGRAPHY: Left main coronary artery is normal and patent. LAD is a good caliber blood vessel and uses a small size diagonal branch. LAD and its branches are normal. Circumflex coronary artery is a good caliber blood vessel uses a good size obtuse marginal branch. Circumflex coronary artery and its branches are normal. Right coronary artery is a normal caliber blood vessel, is dominant in distribution and uses a good size PDA branch. The right coronary artery and its branches are normal. FINAL IMPRESSION: This study reveals normal coronary arteries. Left ventricular end-diastolic pressure is normal. RECOMMENDATIONS: Continue medical treatment and aggressive risk factor modification. MMODL / IJN: [id number] /
--- NOTE | 2017-02-05 13:11 | ECHOF ---
Referral Reason:chest pain MEASUREMENTS -------- HEIGHT: 170.2 cm WEIGHT: 104.3 kg BP: 133/70 RVIDd: 2.6 cm (< 3.3) IVSd: 1.0 cm (0.6 - 1.1) LVIDd: 4.4 cm (3.9 - 5.3) LVPWd: 1.0 cm (0.6 - 1.1) IVSs: 1.2 cm LVIDs: 3.5 cm LVPWs: 1.2 cm LA Diam: 3.4 cm (2.7 - 3.8) LAESV Index (A-L): 15.72 ml/m Ao Diam: 3.0 cm (2.0 - 3.7) AV Cusp: 1.8 cm (1.5 - 2.6) LA Diam: 4.0 cm (2.7 - 3.8) MV EXCURSION: 18.395 mm (> 18.000) MV EF SLOPE: 97 mm/s (70 - 150) EPSS: 0.2 cm MV E Cal: 0.70 m/s MV DecT: 291 ms MV A Cal: 0.83 m/s MV E/A Ratio: 0.84 RAP: 5.00 mmHg RVSP: 16.07 mmHg FINDINGS -------- Sinus rhythm. This was a technically adequate study. LV size, wall thickness and systolic function are normal, with an EF greater than 55%. The left ventricular size is normal. The right ventricle is normal in size. Normal LA size by volume 22+/-6 ml/m2. The right atrial size is normal. There is mild aortic valve sclerosis. There is no evidence of aortic regurgitation. Mild mitral annular calcification present. Mild mitral regurgitation is present. Mild tricuspid regurgitation present. There is no evidence of pulmonary hypertension. The right ventricular systolic pressure, as measured by Doppler, is 16.07mmHg. There is no pulmonic regurgitation present. The aortic root size is normal. There is no pericardial effusion. CONCLUSIONS -------- 1. LV size, wall thickness and systolic function are normal, with an EF greater than 55%. 2. The aortic root size is normal. 3. There is no pericardial effusion. 4. The left ventricular size is normal. 5. There is mild aortic valve sclerosis. 6. Mild mitral annular calcification present. 7. Mild mitral regurgitation is present. 8. Mild tricuspid regurgitation present. 9. There is no evidence of pulmonary hypertension. 10. The right ventricular systolic pressure, as measured by Doppler, is 16.07mmHg. 11. There is no pulmonic regurgitation present. HASHER OPERATOR: Radha Randolph RDCS
[2017-02-05 13:44] LABS: Glucose,Whole Blood 89 mg/dL (75-99)
[2017-02-05 16:35] LABS: Glucose,Whole Blood 139 mg/dL (75-99)
[2017-02-05] MEDS ORDERED: INSULIN GLARGINE 100 UNIT/ML 10 ML VIAL SQ SCH (17:00)
[2017-02-05 19:01] VITALS: BP 105/59; PULSE 65; RESP 15
[2017-02-05 19:08] LABS: Glucose,Whole Blood 227 mg/dL (75-99)
== END 2017-02-05 17:20 | disposition home or self-care (01) | DRG 287 ==
LOC: EC 11:09 → 6SEL 13:52
PROVIDERS: ADMIT Family Medicine; ATTEND Family Medicine
PROC: B2111ZZ Fluoroscopy of Multiple Coronary Arteries using Low Osmolar Contrast (ICD-10-PCS; 2017-02-05)
PROC: B2151ZZ Fluoroscopy of Left Heart using Low Osmolar Contrast (ICD-10-PCS; 2017-02-05)
PROC: 4A023N7 Measurement of Cardiac Sampling and Pressure, Left Heart, Percutaneous Approach (ICD-10-PCS; principal; 2017-02-05 11:29)
DX: R07.9 Chest pain, unspecified (principal); E83.42 Hypomagnesemia; I10 Essential (primary) hypertension; E11.9 Type 2 diabetes mellitus without complications; E78.5 Hyperlipidemia, unspecified; K21.9 Gastro-esophageal reflux disease without esophagitis; R42 Dizziness and giddiness; Z79.4 Long term (current) use of insulin; Z79.899 Other long term (current) drug therapy; Z82.49 Family history of ischemic heart disease and other diseases of the circulatory system
CPT/HCPCS: 36415; 70450; 71020; 80053; 80061; 82550; 82553; 83036; 83735; 84484; 85025; 85610; 85730; 93005; 93306; 93458; 96365; 96375; 96376; 99291

== ENCOUNTER → 2017-08-19 | Outpatient (CLI) | payer OTHER ==
[2017-08-19 09:55] LABS: Calcium 9.7 mg/dL (8.4-10.2); Total Bilirubin 0.7 mg/dL (0.2-1.3)
[2017-08-19 10:26] LABS: Albumin 4.1 g/dL (3.5-5.0); Potassium 4.9 mmol/L (3.5-5.1); Total Protein 6.8 g/dL (6.3-8.2)
== END | disposition home or self-care (01) ==
LOC: LABWHC1 09:04
PROVIDERS: ATTEND Internal Medicine Interventional Cardiology
DX: E78.2 Mixed hyperlipidemia (principal)
CPT/HCPCS: 36415; 80053; 80061

== ENCOUNTER → 2017-11-08 | Outpatient (CLI) | payer OTHER ==
--- NOTE | 2017-11-10 08:48 | MM ---
Reason for exam: screening (asymptomatic). Last mammogram was performed 3 years and 6 months ago. History: Patient is postmenopausal. Family history of breast cancer in daughter at age 38. Physical Findings: A clinical breast exam by your physician is recommended on an annual basis and results should be correlated with mammographic findings. MG 3D Screening Mammo W/Cad Bilateral CC and MLO view(s) were taken. Prior study comparison: May 01, 2014, bilateral MG screening mammo w CAD. May 29, 2004, bilateral screening mammogram. There are scattered fibroglandular densities. There is chronic nodularity in the right breast. No significant changes when compared with prior studies. ASSESSMENT: Negative, BI-RAD 1 RECOMMENDATION: Routine screening mammogram of both breasts in 1 year.
== END | disposition home or self-care (01) ==
LOC: RADMAMWWP 10:26
PROVIDERS: ATTEND Family Medicine
DX: Z12.31 Encounter for screening mammogram for malignant neoplasm of breast (principal)
CPT/HCPCS: 77063; 77067

== ENCOUNTER → 2018-04-07 | Outpatient (CLI) | payer OTHER ==
[2018-04-07 16:02] LABS: LDL Cholesterol,Calculated 66.2 mg/dL (0.0-131.0); VLDL Calculation 21.8 mg/dL (5.00-40.00)
== END | disposition home or self-care (01) ==
LOC: LABWHC1 09:21
PROVIDERS: ATTEND Internal Medicine Interventional Cardiology
DX: E78.2 Mixed hyperlipidemia (principal)
CPT/HCPCS: 36415; 80061; 84450; 84460

== ENCOUNTER 2018-04-23 05:18 | Emergency (ER) | payer OTHER ==
[2018-04-23] MEDS ORDERED: ONDANSETRON 4 MG/2 ML VIAL IVP STA (06:37)
[2018-04-23] MEDS ORDERED: MORPHINE SULFATE 4 MG/ML SYRINGE IV STA (06:37)
[2018-04-23 07:07] VITALS: RESP 16
--- NOTE | 2018-04-23 07:19 | ED ---
General Adult HPI - General Chief complaint: Abdominal Pain Stated complaint: Poss UTI Source: patient, family Mode of arrival: ambulatory Limitations: no limitations - History of Present Illness Initial comments: Dictation was produced using [employer] dictation software. please excuse any grammatical, word or spelling errors. Chief Complaint: 62-year-old female with chief complaint of left-sided flank pain. History of Present Illness: Aline is a 62-year-old female past medical history of diabetes, dyslipidemia, hypertension and nephrolithiasis presents with left-sided flank pain. Patient states her pain is similar to the pain she has experienced when she had a kidney stone. Patient had episode earlier this year. Constitutional symptoms. She does worry that she may have also a urinary tract infection. Patient denies any constitutional symptoms. She states her symptoms approximately which are constantly dull with episodes of sharp pains in the left flank. The ROS documented in this emergency department record has been reviewed and confirmed by me. Those systems with pertinent positive or negative responses have been documented in the HPI. All other systems are other negative and/or noncontributory. - Related Data Home Medications Medication Instructions Recorded Confirmed Insulin Glargine,Hum.rec.anlog 17 units SQ DAILY@1700 05/30/16 02/04/17 [[place] Solostar] Lisinopril [Zestril] 20 mg PO QAM 05/30/16 02/04/17 amLODIPine [Norvasc] 10 mg PO QAM 05/30/16 02/04/17 Omeprazole 20 mg PO DAILY 02/04/17 02/04/17 metFORMIN HCL [Glucophage] 850 mg PO BID@0800,1600 02/04/17 02/04/17 Previous Rx's Medication Instructions Recorded Cephalexin [Keflex] 500 mg PO Q6HR 5 Days #20 cap 04/23/18 HYDROcodone/APAP 5-325MG [[place] 1 tab PO Q6HR PRN 3 Days #12 tab 04/23/18 5-325] Allergies Allergy/AdvReac Type Severity Reaction Status Date / Time No Known Allergies Allergy Verified 04/23/18 05:55 Review of Systems ROS Statement: Those systems with pertinent positive or pertinent negative responses have been documented in the HPI. ROS Other: All systems not noted in ROS Statement are negative. Past Medical History Past Medical History: Diabetes Mellitus, GERD/Reflux, Hyperlipidemia, Hypertension History of Any Multi-Drug Resistant Organisms: None Reported Past Surgical History: Hysterectomy Additional Past Surgical History / Comment(s): bunionectomy, lower dental implants Past Anesthesia/Blood Transfusion Reactions: No Reported Reaction Additional Past Anesthesia/Blood Transfusion Reaction / Comment(s): clausterphobia Past Psychological History: No Psychological Hx Reported Smoking Status: Never smoker Past Alcohol Use History: None Reported Past Drug Use History: None Reported - Past Family History Mother Family Medical History: Diabetes Mellitus Father Additional Family Medical History / Comment(s): pacemaker, heart valve replacement General Exam - General Exam Comments Initial Comments: PHYSICAL EXAM: General Impression: Alert and oriented x3, not in acute distress HEENT: Normocephalic atraumatic, extra-ocular movements intact, pupils equal and reactive to light bilaterally, mucous membranes moist. Cardiovascular: Heart regular rate and rhythm, S1&S2 audible, no murmurs, rubs or gallops Chest: Lungs clear to auscultation bilaterally, no rhonchi, no wheeze, no rales Abdomen: Bowel sounds present, abdomen soft, non-tender, non-distended, no organomegaly Musculoskeletal: Pulses present and equal in all extremities, no peripheral edema Motor: Power 5/5 bilaterally, no focal deficits noted Neurological: CN II-XII grossly intact, no focal motor or sensory deficits noted Skin: Intact with no visualized rashes Psych: Normal affect and mood Limitations: no limitations Course Vital Signs 04/23/18 04/23/18 05:51 07:04 Temperature 98.2 F 99.0 F Pulse Rate 71 79 Respiratory 20 16 Rate Blood Pressure 140/62 143/92 O2 Sat by Pulse 98 98 Oximetry Medical Decision Making - Medical Decision Making ED course: 62-year-old female past medical history of urinary tract infections and nephrolithiasis presents with left-sided flank pain. Vital signs upon arrival are within acceptable limits.Laboratory evaluation obtained. CBC, metabolic panel obtained. Patient has mild bump in her renal markers. Creatinine is 1.12. Urinalysis shows 17 white blood cells with occasional bacteria. Nitrate negative. CT of the abdomen and pelvis with contrast was obtained showing 0.3 x 0.7 cm distal left UVJ stone. Patient given analgesics. Patient appears well. No signs of overwhelming infection. Patient be discharged. She is told to follow-up with urologist for outpatient management of nephrolithiasis. - Lab Data Result diagrams: 04/23/18 07:00 04/23/18 07:00 Lab Results 04/23/18 04/23/18 04/23/18 Range/Units 07:00 07:00 07:00 WBC 9.2 (3.8-10.6) k/uL RBC 4.37 (3.80-5.40) m/uL Hgb 13.2 (11.4-16.0) gm/dL Hct 38.8 (34.0-46.0) % MCV 88.8 (80.0-100.0) fL MCH 30.2 (25.0-35.0) pg MCHC 34.0 (31.0-37.0) g/dL RDW 13.0 (11.5-15.5) % Plt Count 272 (150-450) k/uL Neutrophils % 84 % Lymphocytes % 13 % Monocytes % 2 % Eosinophils % 1 % Basophils % 0 % Neutrophils # 7.7 (1.3-7.7) k/uL Lymphocytes # 1.2 (1.0-4.8) k/uL Monocytes # 0.2 (0-1.0) k/uL Eosinophils # 0.0 (0-0.7) k/uL Basophils # 0.0 (0-0.2) k/uL Sodium 142 (137-145) mmol/L Potassium 4.0 (3.5-5.1) mmol/L Chloride 109 H (98-107) mmol/L Carbon Dioxide 22 (22-30) mmol/L Anion Gap 11 mmol/L BUN 16 (7-17) mg/dL Creatinine 1.12 H (0.52-1.04) mg/dL Est GFR (CKD-EPI)AfAm 60 (>60 ml/min/1.73 sqM) Est GFR (CKD-EPI)NonAf 52 (>60 ml/min/1.73 sqM) Glucose 144 H (74-99) mg/dL Calcium 9.8 (8.4-10.2) mg/dL Total Bilirubin 0.5 (0.2-1.3) mg/dL AST 21 (14-36) U/L ALT 24 (9-52) U/L Alkaline Phosphatase 61 (38-126) U/L Total Protein 7.3 (6.3-8.2) g/dL Albumin 4.2 (3.5-5.0) g/dL Amylase 65 (30-110) U/L Lipase 115 (23-300) U/L Urine Color Yellow Urine Appearance Clear (Clear) Urine pH 8.0 (5.0-8.0) Ur Specific [place] 1.018 (1.001-1.035) Urine Protein Trace H (Negative) Urine Glucose (UA) Negative (Negative) Urine Ketones 1+ H (Negative) Urine Blood Moderate H (Negative) Urine Nitrite Negative (Negative) Urine Bilirubin Negative (Negative) Urine Urobilinogen <2.0 (<2.0) mg/dL Ur Leukocyte Esterase Small H (Negative) Urine RBC 5 (0-5) /hpf Urine WBC 17 H (0-5) /hpf Ur Squamous Epith Cells 2 (0-4) /hpf Urine Bacteria Occasional H (None) /hpf Urine Mucus Rare H (None) /hpf Disposition Clinical Impression: Nephrolithiasis Disposition: HOME SELF-CARE Condition: Good Instructions: Kidney Stones (ED) Prescriptions: Cephalexin [Keflex] 500 mg PO Q6HR 5 Days #20 cap HYDROcodone/APAP 5-325MG [[place] 5-325] 1 tab PO Q6HR PRN 3 Days #12 tab PRN Reason: Severe Pain Is patient prescribed a controlled substance at d/c from ED?: Yes If prescribed controlled substance>3 days was MAPS reviewed?: Prescribed <3 Days Referrals: Russ Hancock MD [Primary Care Provider] - 1-2 days Jose Nguyen MD [STAFF PHYSICIAN] - 1-2 days Time of Disposition: 08:47
[2018-04-23 07:30] LABS: Basophils % (A) 0 %; Eosinophils % (A) 1 %; HCT 38.8 % (34.0-46.0); HGB 13.2 gm/dL (11.4-16.0); Lymphocytes # (A) 1.2 k/uL (1.0-4.8); Lymphocytes % (A) 13 %; MCH 30.2 pg (25.0-35.0); MCV 88.8 fL (80.0-100.0); Monocytes # (A) 0.2 k/uL (0-1.0); Monocytes % (A) 2 %; Neutrophils # (A) 7.7 k/uL (1.3-7.7); Neutrophils % (A) 84 %; Platelet Count 272 k/uL (150-450); RBC 4.37 m/uL (3.80-5.40); WBC 9.2 k/uL (3.8-10.6)
[2018-04-23 07:39] LABS: Albumin 4.2 g/dL (3.5-5.0); Calcium 9.8 mg/dL (8.4-10.2); Total Bilirubin 0.5 mg/dL (0.2-1.3); Total Protein 7.3 g/dL (6.3-8.2)
[2018-04-23 08:18] LABS: Appearance,Urine Clear (Clear); Bacteria,Urine Occasional /hpf; Bilirubin,Urine Negative (Negative); Blood,Urine Moderate (Negative); Color,Urine Yellow; Glucose,Urine (UA) Negative (Negative); Ketones,Urine 1+ (Negative); Leukocyte Esterase,Urine Small (Negative); Mucus,Urine Rare /hpf; Nitrite,Urine Negative (Negative); Protein,Urine Trace (Negative); RBC,Urine 5 /hpf (0-5); Specific Gravity,Urine 1.018 (1.001-1.035); Squamous Epithelial Cell,Urine 2 /hpf (0-4); Urobilinogen,Urine <2.0 mg/dL (<2.0); WBC,Urine 17 /hpf (0-5)
--- NOTE | 2018-04-23 08:21 | CT ---
EXAMINATION TYPE: CT abdomen pelvis wo con DATE OF EXAM: 04/23/2018 COMPARISON: 02/07/2015 INDICATION: Left flank pain with a history of prior renal stones. DLP: 853.2 mGycm, Automated exposure control for dose reduction was used. CONTRAST: 0 mL of Isovue 300. Study performed without Oral Contrast TECHNIQUE: Axial images were obtained from above the diaphragm to the pubic rami in the axial plane a t 5 mm thick sections. Reconstructed images are reviewed on the computer in the coronal plane. FINDINGS: Limited CT sections are obtained the lung bases. There are likely minimal compressive atelectasis wi thin the dependent portions of the lung bases.. There is a small hiatal hernia. CT ABDOMEN: Liver: Normal Spleen: Normal Pancreas: Normal Adrenal glands: The adrenal glands are normal. Gallbladder: Some thickening of the gallbladder wall may be present. Some sludge appears to be within the dependent portion of the gallbladder. Small gravel may be present. Kidneys: No masses are evident. There is mild left hydronephrosis and hydroureter. Left hydroureter e xtends to the distal ureter just proximal to the ureteral vesicle junction. There is ar 0.3 x 0.7 cm calcification at this location. No cysts are present. Aorta: Vascular calcification is within the aorta. Inferior vena cava: Somewhat flattened which may be related to the patient's volume status. CT PELVIS: Noncontrast Loops of bowel within the abdomen and pelvis are normal. There are some scattered div erticuli within the sigmoid colon. Appendix: Normal as visualized. Urinary bladder: Decompressed cannot be well evaluated. Genitourinary structures: Uterus and ovaries are not identified. Osseous structures: No suspicious lytic or sclerotic lesions. IMPRESSIONS: 1. 0.3 x 0.7 cm distal left ureteral vesicle junction stone with mild left hydronephrosis and hydrou reter. 2. Diverticulosis without acute diverticulitis. 3. Gallbladder sludge. There may be some mild wall thickening near the fundus of the gallbladder. 4. Small hiatal hernia
[2018-04-23] MEDS ORDERED: KETOROLAC 30 MG/ML 1 ML VIAL IVP STA (08:44)
[2018-04-23 09:35] VITALS: BP 148/86; PULSE 89; TEMP 98.3
== END 2018-04-23 09:35 | disposition home or self-care (01) ==
LOC: EC 05:18
DX: N20.2 Calculus of kidney with calculus of ureter (principal); E11.9 Type 2 diabetes mellitus without complications; K21.9 Gastro-esophageal reflux disease without esophagitis; E78.5 Hyperlipidemia, unspecified; I10 Essential (primary) hypertension; Z79.4 Long term (current) use of insulin; Z79.899 Other long term (current) drug therapy
CPT/HCPCS: 36415; 80053; 82150; 83690; 85025; 81001; 74176; 99284; 96374; 96375 ×2; J2270; J2405; J1885

== ENCOUNTER → 2018-10-31 | Outpatient (CLI) | payer MEDICARE ==
[2018-10-31 15:53] LABS: LDL Cholesterol,Calculated 81.8 mg/dL (0.0-131.0); VLDL Calculation 19.2 mg/dL (5.00-40.00)
== END | disposition home or self-care (01) ==
LOC: LABWHC1 09:23
PROVIDERS: ATTEND Nurse Practitioner Adult Health
DX: E78.2 Mixed hyperlipidemia (principal)
CPT/HCPCS: 36415; 80061; 84450; 84460

== ENCOUNTER → 2019-05-15 | Outpatient (CLI) | payer MEDICARE ==
[2019-05-15 16:01] LABS: African American GFR (CKD) 68.5 (60.0-200.0); Albumin 4.3 g/dL (3.80-4.90); Albumin/Globulin Ratio 2.15 (1.60-3.17); Anion Gap 5.5 mmol/L (4.00-12.00); Calcium 9.5 mg/dL (8.7-10.3); Carbon Dioxide 26.5 mmol/L (21.6-31.8); Chol/HDL Ratio 3.61; LDL Cholesterol,Calculated 69.4 mg/dL (0.0-131.0); Non-African American GFR(CKD) 59.1 (60.0-200.0); Potassium 4.8 mmol/L (3.5-5.5); Total Bilirubin 0.6 mg/dL (0.3-1.2); Total Protein 6.3 g/dL (6.2-8.2); VLDL Calculation 29.6 mg/dL (5.00-40.00)
== END | disposition home or self-care (01) ==
LOC: LABWHC1 08:39
PROVIDERS: ATTEND Nurse Practitioner Adult Health
DX: I10 Essential (primary) hypertension (principal); E78.2 Mixed hyperlipidemia; E11.9 Type 2 diabetes mellitus without complications
CPT/HCPCS: 36415; 80053; 80061

== ENCOUNTER → 2019-11-22 | Outpatient (CLI) | payer MEDICARE ==
[2019-11-22 17:40] LABS: Chol/HDL Ratio 3.38; LDL Cholesterol,Calculated 58.6 mg/dL (0.0-131.0); VLDL Calculation 22.4 mg/dL (5.00-40.00)
== END | disposition home or self-care (01) ==
LOC: LABWHC1 09:02
PROVIDERS: ATTEND Nurse Practitioner Adult Health
DX: E78.2 Mixed hyperlipidemia (principal)
CPT/HCPCS: 36415; 80061

== ENCOUNTER → 2020-07-23 | Outpatient (CLI) | payer MEDICARE ==
[2020-07-23 16:26] LABS: African American GFR (CKD) 60.6 (60.0-200.0); Albumin 4.1 g/dL (3.80-4.90); Albumin/Globulin Ratio 1.86 (1.60-3.17); Anion Gap 9.7 mmol/L (4.00-12.00); BUN/Creat Ratio 14.55 Ratio (12.00-20.00); Calcium 9.7 mg/dL (8.7-10.3); Carbon Dioxide 21.3 mmol/L (21.6-31.8); Chol/HDL Ratio 3.65; Globulin 2.2 g/dL (1.6-3.3); Non-African American GFR(CKD) 52.3 (60.0-200.0); Potassium 4.7 mmol/L (3.5-5.5); Total Bilirubin 0.5 mg/dL (0.2-1.2); Total Protein 6.3 g/dL (6.2-8.2)
== END | disposition home or self-care (01) ==
LOC: LABWHC1 09:11
PROVIDERS: ATTEND Nurse Practitioner Adult Health
DX: E78.2 Mixed hyperlipidemia (principal); I10 Essential (primary) hypertension
CPT/HCPCS: 36415; 80053; 80061

== ENCOUNTER → 2022-05-11 | Outpatient (CLI) | payer MEDICARE ==
[2022-05-11 15:01] LABS: ALT 11 U/L (8-44); AST 17 U/L (13-35); African American GFR (CKD) 60.4 (60.0-200.0); Albumin 4.3 g/dL (3.8-4.9); Albumin/Globulin Ratio 1.47 (1.60-3.17); Alkaline Phosphatase 62 U/L (41-126); BUN/Creat Ratio 18.62 Ratio (12.00-20.00); Blood Urea Nitrogen 20.3 mg/dL (9.0-27.0); Calcium 10.1 mg/dL (8.7-10.3); Chloride 106 mmol/L (96-109); Chol/HDL Ratio 3.09 Ratio; Glucose 125 mg/dL (70-110); LDL Cholesterol,Calculated 64.6 mg/dL (0.0-131.0); Non-African American GFR(CKD) 52.1 (60.0-200.0); Potassium 4.7 mmol/L (3.5-5.5); Sodium 140 mmol/L (135-145); Total Protein 7.3 g/dL (6.2-8.2)
== END | disposition home or self-care (01) ==
LOC: LABWHC1 08:48
PROVIDERS: ATTEND Internal Medicine Interventional Cardiology
DX: E78.2 Mixed hyperlipidemia (principal)
CPT/HCPCS: 36415; 80053; 80061

== ENCOUNTER → 2022-12-18 | Outpatient (CLI) | payer MEDICARE ==
--- NOTE | 2022-12-18 21:44 | BD ---
EXAMINATION TYPE: Axial Bone Density DATE OF EXAM: 12/18/2022 CLINICAL HISTORY: 67 years old Female. 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 History of Fracture in Adulthood: Yes, left top of foot Secondary Osteoporosis: 1. Type 1 Diabetes: No 2. Hyperthyroidism: No 3. Menopause before 45: No 4. Malnutrition: No 5. Chronic liver disease: No Rheumatoid Arthritis: No Current Tobacco Use: No RISK FACTORS HISTORY OF: Hip Fracture (Right/Left): No Spine Fracture: No History of Wrist Fracture: No Surgery to Spine/Hip(right/left)/Wrist (right/left): No Family History of Osteoporosis: No Active: Yes Diet low in dairy products/other sources of calcium: No Postmenopausal woman: Yes If Premenopausal, do you have irregular periods: Take estrogen and/or progesterone medications: How long: Lost more than 2 inches in height since high school: No Frequent falls: No Poor Health: No Hyperparathyroidism: No Adrenal Insufficiency: No MEDICATIONS: Prednisone or other steroids: No Thyroid Medications: No Osteoporosis Medications: No Additional Medications: metformin, heart meds, cholesterol meds, reflux meds Additional History: EXAM MEASUREMENTS: Bone mineral densitometry was performed using the 5app System. Bone mineral density as measured about the Lumbar spine is: ----- L1-L4(G/cm2): 1.451 T Score Values are as follows: ----- L1: 1.0 ----- L2: 2.1 ----- L3: 3.1 ----- L4: 2.4 ----- L1-L4: 2.3 Z Score Values are as follows: ----- L1: 1.7 ----- L2: 2.8 ----- L3: 3.8 ----- L4: 3.1 ----- L1-L4: 3.0 Bone mineral density has: increased 8.2% since study of: 05/01/2014 Bone mineral density about the R hip (g/cm2): 1.130 Bone mineral density about the L hip (g/cm2): 1.100 T Score values are as follows: -----R Neck: 0.5 -----L Neck: 0.3 -----R Total: 1.0 -----L Total: 0.7 Z Score values are as follows: -----R Neck: 1.6 -----L Neck: 1.3 -----R Total: 1.7 -----L Total: 1.5 Bone mineral density has: decreased -10.8% since study of: 05/01/2014 FRAX%s: The graph provided illustrates a 6.3% chance for a major osteoporotic fx and a 0.2% chance fo r the hips probability for fx in 10 years time. IMPRESSION: Normal (Values between +1 and -1 indicate normal bone mass). Consider repeating this study in 5 year s or sooner if there is some new clinical indication. NOTE: T-SCORE=SD OF THE YOUNG ADULT MEAN.
--- NOTE | 2022-12-21 11:38 | MM ---
EXAM: MG 3D screening mammo w/cad DATE OF EXAM: 12/18/2022 11:19 AM COMPARISON STUDIES: 05/29/2004 Bilateral Screening Mammogram, [facility]. 05/01/2014 Bilateral Screening Mammogram, [facility]. 11/08/2017 Bilateral Screening Mammogram, [facility]. PATIENT HISTORY: Female, 67 years old with history of Z12.31 SCRMAM,; , Menarche at age 10. Left ovary removed at age 44. Right ovary removed at age 44. Hysterectomy at age 44. Postmenopausal. Daughter had breast cancer, age 38. , RISK CALCULATION: Lucinda 5 year model risk: 3.2%. NCI Lifetime model risk: 9.7%. TISSUE DENSITY: Almost entirely fat FINDINGS: Benign-appearing calcifications. There is no suspicious group of microcalcifications or new suspicious mass in either breast. ASSESSMENT: 2 - Benign RECOMMENDATION: 1. Screening Mammogram Bilateral in 1 Year . COMMENTS: [facility] will attempt to contact patient to return for supplemental views and ultrasound if indicated. Patient should continue monthly self-breast exams. A clinical breast exam by your physician is recommended on an annual basis. This exam should not preclude additional follow-up of suspicious palpable abnormalities. Note on Lucinda scores and lifetime risk: 1. A Lucinda score greater than 3% is considered moderate risk. If this is the case, consider specialist referral to assess eligibility for a risk reducing agent. 2. If overall lifetime risk for the development of breast cancer is 20% or higher, the patient may qualify for future screening with alternating mammogram and breast MRI. CLARISSA
== END | disposition home or self-care (01) ==
LOC: RADBDWWP 08:31
PROVIDERS: ATTEND Family Medicine
DX: Z12.31 Encounter for screening mammogram for malignant neoplasm of breast (principal); Z78.0 Asymptomatic menopausal state; Z80.3 Family history of malignant neoplasm of breast
CPT/HCPCS: 77063; 77067; 77080

== ENCOUNTER → 2023-06-08 | Outpatient (CLI) | payer MEDICARE ==
[2023-06-08 15:48] LABS: ALT 17 U/L (8-44); AST 15 U/L (13-35); Albumin 4.3 g/dL (3.8-4.9); Albumin/Globulin Ratio 1.48 Ratio (1.60-3.17); Alkaline Phosphatase 82 U/L (41-126); BUN/Creat Ratio 16.33 Ratio (12.00-20.00); Blood Urea Nitrogen 19.6 mg/dL (9.0-27.0); Carbon Dioxide 19.5 mmol/L (21.6-31.8); Chloride 109 mmol/L (96-109); Chol/HDL Ratio 3.59 Ratio; Globulin 2.9 g/dL (1.6-3.3); Glucose 161 mg/dL (70-110); LDL Cholesterol,Calculated 69.2 mg/dL (0.0-131.0); Potassium 4.4 mmol/L (3.5-5.5); Sodium 142 mmol/L (135-145); Total Bilirubin 0.4 mg/dL (0.3-1.2); Total Protein 7.2 g/dL (6.2-8.2)
== END | disposition home or self-care (01) ==
LOC: LABWHC1 09:12
PROVIDERS: ATTEND Internal Medicine Interventional Cardiology
DX: I10 Essential (primary) hypertension (principal); E78.2 Mixed hyperlipidemia
CPT/HCPCS: 36415; 80053; 80061

== ENCOUNTER → 2023-09-01 | Outpatient (CLI) | payer MEDICARE ==
[2023-09-01 15:25] LABS: Appearance,Urine Cloudy (Clear); Bilirubin,Urine Negative (Negative); Blood,Urine Negative (Negative); Color,Urine Dark Yellow (Yellow); Ketones,Urine Trace (Negative); Nitrite,Urine Negative (Negative); PH, Urine 5.5; Specific Gravity,Urine 1.023 (1.001-1.030)
[2023-09-01 15:50] LABS: % Iron Saturation 24.33 (12.00-45.00); ALT 16 U/L (8-44); AST 17 U/L (13-35); Albumin/Globulin Ratio 1.29 Ratio (1.60-3.17); Alkaline Phosphatase 100 U/L (41-126); BUN/Creat Ratio 13.21 Ratio (12.00-20.00); Blood Urea Nitrogen 18.5 mg/dL (9.0-27.0); Calcium 9.7 mg/dL (8.7-10.3); Carbon Dioxide 20.2 mmol/L (21.6-31.8); Chloride 105 mmol/L (96-109); Globulin 3.1 g/dL (1.6-3.3); Glucose 247 mg/dL (70-110); Iron 91 UG/DL (50-170); Magnesium 1.7 mg/dL (1.5-2.4); Potassium 4.3 mmol/L (3.5-5.5); Sodium 139 mmol/L (135-145); Total Bilirubin 0.5 mg/dL (0.3-1.2); Total Iron Binding Capacity 374 UG/DL (228-460); Total Protein 7.1 g/dL (6.2-8.2); Uric Acid 7.1 mg/dL (2.9-7.7)
[2023-09-01 16:16] LABS: Bacteria,Urine None Seen (None Seen)
[2023-09-01 16:19] LABS: HCT 40.3 % (37.2-46.3); HGB 12.5 g/dL (12.0-15.0); MCV 90.2 FL (80.0-97.0); Mean Platelet Volume 10.6 FL (9.5-12.2); NRBC Per 100 WBC 0 X 10*3/uL (0.00-0.01); Platelet Count 247 X 10*3/uL (140-440); RBC 4.47 X 10*6/uL (4.10-5.20); RDW 14.1 % (11.5-14.5); WBC 5.42 X 10*3/uL (4.50-10.00)
== END | disposition home or self-care (01) ==
LOC: LABWHC1 08:11
PROVIDERS: ATTEND Internal Medicine
DX: N25.81 Secondary hyperparathyroidism of renal origin (principal); N17.9 Acute kidney failure, unspecified; D64.9 Anemia, unspecified; N39.0 Urinary tract infection, site not specified; E55.9 Vitamin D deficiency, unspecified; M10.9 Gout, unspecified; R80.9 Proteinuria, unspecified
CPT/HCPCS: 36415; 80053; 81001; 82043; 82306; 82570; 82728; 83540; 83550; 83735; 83970; 84100; 84550; 85027

== ENCOUNTER → 2024-01-24 | Outpatient (CLI) | payer MEDICARE ==
[2024-01-24 12:56] LABS: Creatinine,Urine Random 225.2 mg/dL
[2024-01-24 13:04] LABS: Protein/Creatinine Ratio,Urine 1.443
[2024-01-24 15:35] LABS: HCT 37.1 % (37.2-46.3); HGB 12.3 g/dL (12.0-15.0); MCH 28.3 pg (27.0-32.0); MCHC 33.2 g/dL (32.0-37.0); MCV 85.3 FL (80.0-97.0); Mean Platelet Volume 9.8 FL (9.5-12.2); NRBC Per 100 WBC 0 X 10*3/uL (0.00-0.01); Platelet Count 315 X 10*3/uL (140-440); RBC 4.35 X 10*6/uL (4.10-5.20); RDW 14.1 % (11.5-14.5); WBC 9.36 X 10*3/uL (4.50-10.00)
[2024-01-24 16:37] LABS: % Iron Saturation 24.82 (12.00-45.00); ALT 16 U/L (8-44); AST 17 U/L (13-35); Albumin 4.4 g/dL (3.8-4.9); Albumin/Globulin Ratio 1.57 Ratio (1.60-3.17); Alkaline Phosphatase 83 U/L (41-126); BUN/Creat Ratio 14.21 Ratio (12.00-20.00); Blood Urea Nitrogen 19.9 mg/dL (9.0-27.0); Carbon Dioxide 19.6 mmol/L (21.6-31.8); Chloride 105 mmol/L (96-109); Globulin 2.8 g/dL (1.6-3.3); Glucose 123 mg/dL (70-110); Iron 105 UG/DL (50-170); Magnesium 1.1 mg/dL (1.5-2.4); Phosphorus 3.1 mg/dL (2.4-5.1); Potassium 4.5 mmol/L (3.5-5.5); Sodium 142 mmol/L (135-145); Total Bilirubin 0.5 mg/dL (0.3-1.2); Total Iron Binding Capacity 423 UG/DL (228-460); Total Protein 7.2 g/dL (6.2-8.2); Uric Acid 7.5 mg/dL (2.9-7.7)
[2024-01-24 16:46] LABS: Anti-DNA, DS unit <1.0 IU/mL; DNA Double-Stranded Negative (Negative)
[2024-01-24 18:07] LABS: Appearance,Urine Cloudy (Clear); Bilirubin,Urine Negative (Negative); Blood,Urine Moderate (Negative); Color,Urine Yellow (Yellow); Ketones,Urine Trace (Negative); Nitrite,Urine Positive (Negative); Specific Gravity,Urine 1.022 (1.001-1.030); Urobilinogen,Urine 0.2 E.U./DL
[2024-01-24 18:25] LABS: Bacteria,Urine 3+ (None Seen); Mucus,Urine Present
[2024-01-25 00:25] LABS: Total Protein 24 Hour,Urine 538.2 mg/24Hr (0.0-165.0); Total Volume 24 Hour,Urine 1800 mL
[2024-01-25 11:44] LABS: Free Kappa Lt Chain Qnt, Serum 4.02 mg/dL (0.33-1.94); Free Lambda Lt Chain Qnt, Seru 2.39 mg/dL (0.57-2.63)
[2024-01-25 14:23] LABS: C-ANCA <1:20 Titer (<1:20)
== END | disposition home or self-care (01) ==
LOC: LABWHC1 11:23
PROVIDERS: ATTEND Nurse Practitioner Family
DX: N17.9 Acute kidney failure, unspecified
CPT/HCPCS: 36415; 80053; 81001; 81050; 82043; 82306; 82570; 82728; 83516; 83540; 83550; 83735; 83883; 83970; 84100; 84156; 84166; 84550; 85027; 86038; 86160; 86162; 86225; 86255; 86334

== ENCOUNTER → 2024-02-02 | Outpatient (CLI) | payer MEDICARE ==
--- NOTE | 2024-02-03 11:26 | MM ---
Reason for Exam: Screening (asymptomatic). Last mammogram was performed 1 year(s) and 2 month(s) ago. Patient History: Menarche at age 10. First Full-Term at age 19. Left ovary removed at age 44. Right ovary removed at age 44. Hysterectomy at age 44. Postmenopausal. Daughter had breast cancer, age 38. Daughter tested for BRCA1 outcome was negative. Risk Values: Lucinda 5 year model risk: 3.3%. NCI Lifetime model risk: 9.5%. Prior Study Comparison: 05/01/2014 Bilateral Screening Mammogram, [facility]. 11/08/2017 Bilateral Screening Mammogram, [facility]. 12/18/2022 Bilateral MG 3D screening mammo w/cad, [facility]. Tissue Density: The breasts are heterogeneously dense, which may obscure small masses. Findings: Analyzed By CAD. There is no suspicious group of microcalcifications or new suspicious mass in either breast. Overall Assessment: Negative, BI-RAD 1 Management: Screening Mammogram of both breasts in 1 year. . Patient should continue monthly self-breast exams. A clinical breast exam by your physician is recommended on an annual basis. This exam should not preclude additional follow-up of suspicious palpable abnormalities. Note on Lucinda scores and lifetime risk: 1. A Lucinda score greater than 3% is considered moderate risk. If this is the case, consider specialist referral to assess eligibility for a risk reducing agent. 2. If overall lifetime risk for the development of breast cancer is 20% or higher, the patient may qualify for future screening with alternating mammogram and breast MRI. [facility], , 02/03/2024 11:23 AM. Electronically signed and approved by: Merlin Corrales M.D. Radiologis
== END | disposition home or self-care (01) ==
LOC: RADMAMWWP 10:46
PROVIDERS: ATTEND Family Medicine
CPT/HCPCS: 77063; 77067

== ENCOUNTER → 2024-05-01 | Outpatient (CLI) | payer MEDICARE ==
--- NOTE | 2024-05-01 11:09 | XR ---
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 Chest x-ray: No acute process. Spine: Two views of the cervical, thoracic and lumbar spines are submitted. Multilevel facet arthrop athy is seen in the cervical spine bilaterally. Moderate to severe disc space narrowing at C6-C7 leve l is present. Prominent anterior osteophytes in the mid to lower cervical spine near C6 level noted. There are 5 lumbar-type vertebra. There is slight grade 1 anterolisthesis of L4 on L5. [id number] te multilevel spurring and disc space narrowing of the thoracolumbar junction is present. PELVIS: Single view of the pelvis demonstrates moderate to severe narrowing right greater than left hip joints. No suspicious focal osseous lesion. UPPER EXTREMITIES: Single views of the upper extremities. No suspicious osseous abnormality. LOWER EXTREMITIES: 2 views of the lower extremities. Moderate degenerative changes of both knees. No suspicious focal osseous lesion. IMPRESSION: As above [facility], , 05/01/2024 11:07 AM
== END | disposition home or self-care (01) ==
LOC: RADXRMAIN 10:28
PROVIDERS: ATTEND Internal Medicine Hematology & Oncology
DX: M17.0 Bilateral primary osteoarthritis of knee (principal)
CPT/HCPCS: 77075

== ENCOUNTER → 2024-05-23 | Outpatient (CLI) | payer MEDICARE ==
[2024-05-23 10:10] LABS: Appearance,Urine Cloudy (Clear); Bilirubin,Urine Negative (Negative); Blood,Urine Negative (Negative); Color,Urine Yellow; Glucose,Urine (UA) Negative (Negative); Hyaline Casts,Urine 5 /lpf (0-2); Ketones,Urine Negative (Negative); Leukocyte Esterase,Urine Large (Negative); Mucus,Urine Many /hpf; Nitrite,Urine Negative (Negative); PH, Urine 5.5 (5.0-8.0); Protein,Urine Trace (Negative); RBC,Urine 4 /hpf (0-5); Specific Gravity,Urine 1.023 (1.001-1.035); Squamous Epithelial Cell,Urine 14 /hpf (0-4); Urobilinogen,Urine <2.0 mg/dL (<2.0); WBC,Urine 40 /hpf (0-5)
[2024-05-23 15:19] LABS: Basophils # (A) 0.04 X 10*3/uL (0.00-0.10); Basophils % (A) 0.6 %; Eosinophils # (A) 0.26 X 10*3/uL (0.04-0.35); HCT 38.5 % (37.2-46.3); HGB 12.6 g/dL (12.0-15.0); Lymphocytes # (A) 2.04 X 10*3/uL (0.90-5.00); Lymphocytes % (A) 31.4 %; MCH 28.6 pg (27.0-32.0); MCHC 32.7 g/dL (32.0-37.0); MCV 87.5 FL (80.0-97.0); Mean Platelet Volume 9.9 FL (9.5-12.2); Monocytes % (A) 6.2 %; NRBC Per 100 WBC 0 X 10*3/uL (0.00-0.01); Neutrophils # (A) 3.73 X 10*3/uL (1.80-7.70); Neutrophils % (A) 57.5 %; Platelet Count 337 X 10*3/uL (140-440); RDW 13.5 % (11.5-14.5); WBC 6.49 X 10*3/uL (4.50-10.00)
[2024-05-23 17:51] LABS: % Iron Saturation 23.87 (12.00-45.00); ALT 19 U/L (8-44); AST 21 U/L (13-35); Albumin 4.1 g/dL (3.8-4.9); Albumin/Globulin Ratio 1.41 Ratio (1.60-3.17); Alkaline Phosphatase 74 U/L (41-126); BUN/Creat Ratio 14.67 Ratio (12.00-20.00); Blood Urea Nitrogen 17.6 mg/dL (9.0-27.0); Calcium 9.8 mg/dL (8.7-10.3); Chloride 104 mmol/L (96-109); Ferritin 16.5 ng/mL (10.0-291.0); Globulin 2.9 g/dL (1.6-3.3); Glucose 158 mg/dL (70-110); Iron 95 UG/DL (50-170); Magnesium 1.5 mg/dL (1.5-2.4); Phosphorus 3.1 mg/dL (2.4-5.1); Potassium 4.7 mmol/L (3.5-5.5); Sodium 139 mmol/L (135-145); Total Bilirubin 0.5 mg/dL (0.3-1.2); Total Iron Binding Capacity 398 UG/DL (228-460); Uric Acid 7.3 mg/dL (2.9-7.7)
== END | disposition home or self-care (01) ==
LOC: LABWHC1 09:12
PROVIDERS: ATTEND Internal Medicine
DX: N17.9 Acute kidney failure, unspecified (principal); N25.81 Secondary hyperparathyroidism of renal origin; M10.9 Gout, unspecified; D64.9 Anemia, unspecified; N39.0 Urinary tract infection, site not specified; E55.9 Vitamin D deficiency, unspecified; R80.9 Proteinuria, unspecified
CPT/HCPCS: 36415; 80053; 81001; 82043; 82306; 82570; 82728; 83540; 83550; 83735; 83970; 84100; 84550; 85025; 86334; 86335

== ENCOUNTER → 2024-07-04 | Outpatient (CLI) | payer MEDICARE ==
[2024-07-04 15:48] LABS: Chol/HDL Ratio 3.42 Ratio; LDL Cholesterol,Calculated 67.8 mg/dL (0.0-131.0)
[2024-07-04 15:57] LABS: ALT 14 U/L (8-44); AST 21 U/L (13-35); Alkaline Phosphatase 72 U/L (41-126); BUN/Creat Ratio 13.85 Ratio (12.00-20.00); Calcium 9.5 mg/dL (8.7-10.3); Carbon Dioxide 20.5 mmol/L (21.6-31.8); Chloride 106 mmol/L (96-109); Globulin 2.5 g/dL (1.6-3.3); Glucose 115 mg/dL (70-110); Potassium 4.6 mmol/L (3.5-5.5); Sodium 140 mmol/L (135-145); Total Bilirubin 0.3 mg/dL (0.3-1.2); Total Protein 6.5 g/dL (6.2-8.2)
== END | disposition home or self-care (01) ==
LOC: LABWHC1 09:31
PROVIDERS: ATTEND Internal Medicine Interventional Cardiology
DX: I10 Essential (primary) hypertension (principal); E78.2 Mixed hyperlipidemia
CPT/HCPCS: 36415; 80053; 80061

== ENCOUNTER → 2024-11-14 | Outpatient (CLI) | payer MEDICARE ==
[2024-11-14 15:31] LABS: Bacteria,Urine None Seen (None Seen)
[2024-11-14 15:48] LABS: Bilirubin,Urine Negative (Negative); Blood,Urine Trace (Negative); Color,Urine Yellow (Yellow); Ketones,Urine Trace (Negative); Nitrite,Urine Negative (Negative); PH, Urine 5.5; Specific Gravity,Urine 1.034 (1.001-1.030); Urobilinogen,Urine 0.2
[2024-11-14 15:54] LABS: ALT 15 U/L (8-44); AST 22 U/L (13-35); Albumin 4.3 g/dL (3.8-4.9); Albumin/Globulin Ratio 1.43 Ratio (1.60-3.17); Alkaline Phosphatase 71 U/L (41-126); Anion Gap 13.50 mmol/L (4.00-12.00); BUN/Creat Ratio 16.23 Ratio (12.00-20.00); Blood Urea Nitrogen 21.1 mg/dL (9.0-27.0); Calcium 9.7 mg/dL (8.7-10.3); Carbon Dioxide 21.5 mmol/L (21.6-31.8); Chloride 104 mmol/L (96-109); Ferritin 16.4 ng/mL (10.0-291.0); Globulin 3.0 g/dL (1.6-3.3); Glucose 164 mg/dL (70-110); Iron 67 UG/DL (50-170); Magnesium 1.5 mg/dL (1.5-2.4); Potassium 4.2 mmol/L (3.5-5.5); Sodium 139 mmol/L (135-145); Total Iron Binding Capacity 388 UG/DL (228-460); Total Protein 7.3 g/dL (6.2-8.2); Uric Acid 6.9 mg/dL (2.9-7.7)
[2024-11-14 15:55] LABS: HCT 40.5 % (37.2-46.3); HGB 12.8 g/dL (12.0-15.0); MCH 27.5 pg (27.0-32.0); MCHC 31.6 g/dL (32.0-37.0); MCV 87.1 FL (80.0-97.0); NRBC Per 100 WBC 0 X 10*3/uL (0.00-0.01); Platelet Count 337 X 10*3/uL (140-440); RBC 4.65 X 10*6/uL (4.10-5.20); RDW 13.9 % (11.5-14.5); WBC 6.34 X 10*3/uL (4.50-10.00)
== END | disposition home or self-care (01) ==
LOC: LABWHC1 09:30
PROVIDERS: ATTEND Internal Medicine
DX: N18.32 Chronic kidney disease, stage 3b (principal); D63.1 Anemia in chronic kidney disease; M10.9 Gout, unspecified; N39.0 Urinary tract infection, site not specified; E55.9 Vitamin D deficiency, unspecified; N25.81 Secondary hyperparathyroidism of renal origin; R80.9 Proteinuria, unspecified
CPT/HCPCS: 36415; 80053; 81001; 82043; 82306; 82570; 82728; 83540; 83550; 83735; 83970; 84100; 84550; 85027